=== PATIENT | male | born 1950 | race Caucasian/White ===

== ENCOUNTER 2016-12-07 07:14 | Emergency (ER) | payer OTHER ==
[2016-12-07 07:34] LABS: BILIRUBIN,URINE NEGATIVE (NEGATIVE)
[2016-12-07] MEDS ORDERED: KETOROLAC 60 MG/2 ML VIAL IVP STA (07:40)
[2016-12-07] MEDS ORDERED: SODIUM CHLORIDE 0.9% 1,000 ML IV ONE ×2 (07:40→10:25)
[2016-12-07] MEDS ORDERED: HYDROmorphone 1 MG/ML SYRINGE IVP STA ×2 (07:40→10:04)
[2016-12-07 07:42] LABS: UA w/ MICROSCOPIC CHARGE YES; UR CULTURE IF IND NOT INDICATED; WBC,URINE 0-3 /HPF (0-3)
[2016-12-07] MEDS ORDERED: KETOROLAC 30 MG/ML VIAL ONE (07:50)
[2016-12-07] MEDS ORDERED: ONDANSETRON 4 MG/2 ML VIAL ONE (07:50)
[2016-12-07] MEDS ORDERED: HYDROmorphone 1 MG/ML SYRINGE ONE ×2 (07:50→10:09)
[2016-12-07] MEDS ORDERED: ONDANSETRON 4 MG/2 ML VIAL IVP STA (07:56)
--- NOTE | 2016-12-07 08:22 | ED Physician Documentation ---
History of Present Illness - Stated complaint Stated Complaint: ABD PX - Chief complaint Chief Complaint: Abd Pain - Additonal information Additional information: Patient is a 66-year-old man with history of hypertension and a distant history of kidney stones who presents with a complaint of right-sided abdominal flank pain onset at 3M. I think really makes it better or worse he has had mild nausea without vomiting. There is no fever, chills, constipation, diarrhea or hematuria. He doesNot have any preceding symptoms and was doing well yesterday. He has been outside exercising quite a bit over the last week or 2. Review of systems: For pertinent positive and negative questions for the review of systems please see history of present illness. Otherwise all other systems have been reviewed and are negative. [employer] disclaimer: Parts of this medical record were created using voice recognition technology. Because of the inherent limitations of this system occasional same sounding word substitutions do occur and persist despite proofreading. Please read the document for context. PD PAST MEDICAL HISTORY - Past Medical History Cardiovascular: Hypertension Respiratory: CPAP use Neuro: Headache/migraine : Kidney stones Musculoskeletal: Osteopenia Other Past Medical History: L1/L2/T9 Compression fractures r/t Falls - Past Surgical History Ortho: ACL reconstruction - Present Medications Home Medications: Ambulatory Orders Medication Instructions Recorded Confirmed Losartan [Cozaar] 25 mg PO DAILY 12/07/16 12/07/16 - Allergies Allergies/Adverse Reactions: Allergies Allergy/AdvReac Type Severity Reaction Status Date / Time No Known Drug Allergies Allergy Verified 12/07/16 07:22 - Social History Does the pt smoke?: No Smoking Status: Never smoker ETOH Use: Wine Does the pt have substance abuse?: No - Immunizations Immunizations are current?: Yes PD ED PE NORMAL - Vitals Vital signs reviewed: Yes - General General: Alert and oriented X 3, No acute distress - HEENT HEENT: Atraumatic, PERRL - Neck Neck: Supple, no meningeal sign - Cardiac Cardiac: RRR, No murmur, No gallop - Respiratory Respiratory: No respiratory distress, Clear bilaterally - Abdomen Abdomen: Normal bowel sounds, Soft, Non tender, Non distended - Back Back: No CVA TTP - Derm Derm: Normal color, Warm and dry, No rash, Other - Extremities Extremities: No deformity - Neuro Neuro: Alert and oriented X 3, No motor deficit, No sensory deficit - Psych Psych: Normal mood, Normal affect Results - Vitals Vitals: Vital Signs - 24 hr 12/07/16 07:15 Temperature 36.4 C L Heart Rate 60 Respiratory 16 Rate Blood Pressure 133/87 H O2 Saturation 99 Oxygen O2 Source Room air - Labs Labs: Laboratory Tests 12/07/16 12/07/16 12/07/16 07:21 08:00 08:00 WBC 6.7 RBC 4.96 Hgb 14.8 Hct 43.9 MCV 88.4 MCH 29.9 MCHC 33.8 RDW 14.2 Plt Count 156 MPV 7.9 Neut # 5.1 Lymph # 1.1 L [place] # 0.3 Eos # 0.1 Baso # 0.1 Absolute Nucleated RBC 0.00 Nucleated RBCs 0.0 Sodium 138 Potassium 4.0 Chloride 105 Carbon Dioxide 27 Anion Gap 6.0 BUN 22 H Creatinine 0.8 Estimated GFR (MDRD) 97 Glucose 109 H Calcium 9.1 Total Bilirubin 0.8 AST 22 ALT 27 Alkaline Phosphatase 56 Total Protein 6.8 Albumin 4.1 Globulin 2.7 Albumin/Globulin Ratio 1.5 Lipase 31 Urine Color YELLOW Urine Clarity CLEAR Urine pH 6.0 Ur Specific [place] 1.020 Urine Protein NEGATIVE Urine Glucose (UA) NEGATIVE Urine Ketones NEGATIVE Urine Occult Blood SMALL H Urine Nitrite NEGATIVE Urine Bilirubin NEGATIVE Urine Urobilinogen 0.2 (NORMAL) Ur Leukocyte Esterase NEGATIVE Urine RBC 6-10 H Urine WBC 0-3 Ur Squamous Epith Cells RARE Squamous Urine Bacteria Rare Ur Microscopic Review INDICATED Urine Culture Comments NOT INDICATED PD MEDICAL DECISION MAKING - ED course ED course: This patient is a pleasant healthy male who presents with abdominal pain in the right side onset yesterday with nausea. On exam he does not have any tenderness there are no alleviating or exacerbating Factors. Based on this we suspected a kidney stone from the onset. Is given IV fluids Toradol Dilaudid and Zofran he currently feels better. Routine blood work is unremarkable on this patient. He was found to have Ureterolithiasis with a 4.7 mm stone at the largest diameter in mid position right side. Clinically this patient is doing well there is no signs or symptoms of infection he has a good chance of passing the stone although it is a little on the larger size. He was informed of these findings. We will place him on Flomax and administer pain, nausea medications, strainer and have him follow-up with his physician. Disposition: To home Clinical impression: 1. Ureterolithiasis right side 4.7 mm stone mid position
[2016-12-07 08:28] LABS: BASOPHILS # (AUTO) 0.1 10^3/uL (0.0-0.1); BASOPHILS % (AUTO) 0.9 %; EOSINOPHILS # (AUTO) 0.1 10^3/uL (0.0-0.7); EOSINOPHILS % (AUTO) 1.1 %; HCT - HEMATOCRIT 43.9 % (42.0-52.0); HGB - HEMOGLOBIN 14.8 g/dL (14.0-18.0); LYMPHOCYTES # (AUTO) 1.1 10^3/uL (1.5-3.5); LYMPHOCYTES % (AUTO) 16.3 %; MEAN CORPUSCULAR HEMOGLOBIN 29.9 pg (27.0-31.0); MEAN CORPUSCULAR HGB CONC 33.8 g/dL (32.0-36.0); MEAN CORPUSCULAR VOLUME 88.4 fL (80.0-94.0); MEAN PLATELET VOLUME 7.9 fL (7.4-11.4); MONOCYTES # (AUTO) 0.3 10^3/uL (0.0-1.0); MONOCYTES % (AUTO) 5.2 %; NEUTROPHILS # (AUTO) 5.1 10^3/uL (1.5-6.6); NEUTROPHILS % (AUTO) 76.5 %; RED BLOOD COUNT 4.96 10^6/uL (4.70-6.10); RED CELL DISTRIBUTION WIDTH 14.2 % (12.0-15.0); UNCORRECTED WHITE BLOOD COUNT 6.7 x10^3/uL; WHITE BLOOD COUNT 6.7 x10^3/uL (4.8-10.8)
[2016-12-07 08:41] LABS: ALBUMIN/GLOBULIN RATIO 1.5 (1.0-2.2); BILIRUBIN,TOTAL 0.8 mg/dL (0.2-1.0); CALCIUM 9.1 mg/dL (8.5-10.3); CREATININE 0.8 mg/dL (0.6-1.2); TOTAL PROTEIN 6.8 g/dL (6.7-8.2)
--- NOTE | 2016-12-07 09:03 | CT Preliminary Report ---
Exam: CT Abdomen/Pelvis W/O IMPRESSION: 1. Stone in the proximal right ureter measuring 4.7 x 3.3 mm resulting in mild right hydroureteroneph rosis. 2. Additional small bilateral nonobstructing renal calculi. [facility] SITE ID: [id number]
--- NOTE | 2016-12-07 09:06 | CT Report ---
EXAM: CT ABDOMEN AND PELVIS (CT KUB) EXAM DATE: 12/07/2016 08:42 AM. CLINICAL HISTORY: Right flank pain no tenderness. COMPARISONS: None. TECHNIQUE: Routine axial helical CT imaging was performed through the abdomen and pelvis without IV c ontrast. Reconstructions: Coronal and sagittal. In accordance with CT protocol optimization, one or more of the following dose reduction techniques w ere utilized for this exam: automated exposure control, adjustment of mA and/or KV based on patient s ize, or use of iterative reconstructive technique. FINDINGS: Lung Bases: Dependent atelectasis at the lung bases. No pleural or pericardial effusion. Right Kidney/Ureter: 2.7 cm right renal cyst. 2 mm and 2.5 mm nonobstructing right renal calculi. 4.7 x 3.3 mm obstructing stone at the right proximal ureter just below the ureteropelvic junction at the lower L3 level. Mild right hydronephrosis with perinephric fat stranding. Left Kidney/Ureter: Multiple 2-4 mm nonobstructing calculi. No hydronephrosis. No ureter stone. Other Solid Organs: Noncontrast images of the solid organs are grossly unremarkable. Gallbladder/Bile Ducts: Unremarkable. Peritoneal Cavity: No free fluid, free air or tarun adenopathy. Bowel is grossly unremarkable. Pelvic Organs: No bladder stones. Small fat-containing inguinal hernias. Vasculature: Unremarkable. Other: None. IMPRESSION: 1. Stone in the proximal right ureter measuring 4.7 x 3.3 mm resulting in mild right hydroureteroneph rosis. 2. Additional small bilateral nonobstructing renal calculi. [facility] Referring Provider Line: [phone] SITE ID: [id number]
[2016-12-07] MEDS ORDERED: TAMSULOSIN 0.4 MG CAPSULE PO STA (10:05)
[2016-12-07] MEDS ORDERED: TAMSULOSIN 0.4 MG CAPSULE ONE (10:10)
[2016-12-07 11:21] VITALS: BP 127/81
== END 2016-12-07 11:32 | disposition home or self-care (01) ==
LOC: ED 07:14
DX: N20.1 Calculus of ureter (principal); I10 Essential (primary) hypertension
CPT/HCPCS: 36415; 74176; 80053; 81001; 83690; 85025; 96374; 96375; 96376; 99284; A9270; J1170; 81003; 87086

== ENCOUNTER 2020-07-13 23:17 | Emergency (ER) | payer OTHER ==
[2020-07-13] MEDS ORDERED: ACETAMINOPHEN 325 MG TABLET PO STA (23:34)
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
[2020-07-14] MEDS ORDERED: MORPHINE 2 MG/ML CARPUJECT IVP STA (01:28)
[2020-07-14 01:54] LABS: BASOPHILS # (AUTO) 0.1 10^3/uL (0.0-0.1); BASOPHILS % (AUTO) 0.9 %; EOSINOPHILS # (AUTO) 0.1 10^3/uL (0.0-0.7); EOSINOPHILS % (AUTO) 1.4 %; HGB - HEMOGLOBIN 15.9 g/dL (14.0-18.0); LYMPHOCYTES # (AUTO) 1.9 10^3/uL (1.5-3.5); LYMPHOCYTES % (AUTO) 17.9 %; MEAN CORPUSCULAR HEMOGLOBIN 30.1 pg (27.0-31.0); MEAN CORPUSCULAR HGB CONC 32.7 g/dL (32.0-36.0); MEAN CORPUSCULAR VOLUME 91.9 fL (80.0-94.0); MEAN PLATELET VOLUME 9.9 fL (7.4-11.4); MONOCYTES # (AUTO) 0.6 10^3/uL (0.0-1.0); MONOCYTES % (AUTO) 5.9 %; NEUTROPHILS # (AUTO) 7.6 10^3/uL (1.5-6.6); NEUTROPHILS % (AUTO) 73.5 %; PLT - PLATELET COUNT 157 10^3/uL (130-450); RED BLOOD COUNT 5.29 10^6/uL (4.70-6.10); WHITE BLOOD COUNT 10.4 x10^3/uL (4.8-10.8)
[2020-07-14 02:02] LABS: CALCIUM 9.1 mg/dL (8.5-10.3)
[2020-07-14] MEDS ORDERED: IOVERSOL 320 100 ML VIAL IVP ONE ×2 (02:15→02:25)
[2020-07-14] MEDS ORDERED: oxyCODONE/ACET 5/325 Prepack 4 PO STA (03:18)
[2020-07-14 03:34] VITALS: BP 117/83
--- NOTE | 2020-07-14 07:23 | XRAY Report ---
PROCEDURE: Ribs w/PA Chest LT INDICATIONS: fall, posterior chest wall pain, tenderness TECHNIQUE: 2 views of the left ribs were acquired, along with a single view chest. COMPARISON: None FINDINGS: Surgical changes and devices: None. Bones and chest wall: No suspicious bony lesions. Overlying soft tissues appear unremarkable. Age- indeterminate lateral left eighth and ninth rib fractures. Lungs and pleura: No pleural effusions or pneumothorax. Minimal streaky bibasilar opacities. No foca l consolidations. Mediastinum: Mediastinal contours appear normal. Heart size is normal. IMPRESSION: 1. Age-indeterminate lateral left eighth and ninth rib fractures. These are favored to be subacute to chronic in age. Consider dedicated imaging with CT if there is persistent clinical concern. No pneum othorax. 2. Streaky bibasilar opacities. No significant discrepancy with initial interpretation by overnight radiologist. Reviewed by: Deonte Zuñiga MD on 07/14/2020 7:21 AM PST Approved by: Deonte Zuñiga MD on 07/14/2020 7:21 AM PST Station ID: [id number]
--- NOTE | 2020-07-14 07:33 | CT Report ---
PROCEDURE: Abdomen/Pelvis W INDICATIONS: fall, LUQ pain, tenderness radiating to back CONTRAST: IV CONTRAST: Optiray 320 ml: 100 PO CONTRAST: *NO PO CONTRAST TECHNIQUE: After the administration of weight appropriate dose of intravenous contrast, 5 mm thick sections acqu ired from the diaphragms to the symphysis. 5 mm thick coronal and sagittal reformats were acquired. For radiation dose reduction, the following was used: automated exposure control, adjustment of mA and/or kV according to patient size. COMPARISON: None. FINDINGS: Image quality: Excellent. ABDOMEN: Lung bases: Patchy bibasilar atelectasis greater on the left. Small left pleural effusion which appea rs slightly dense in attenuation and may represent a small amount of fecal pneumothorax. No visible p neumothorax. Tiny amount of soft tissue gas posterior to the left ninth rib. No definite fracture vis ualized. Heart size is normal. Mild atherosclerotic calcifications of the coronary arteries. Solid organs: Liver and spleen are normal in size and enhancement. Gallbladder is unremarkable L[place] iary system is non dilated. Pancreas enhances normally. No adrenal nodules. Kidneys demonstrate no rmal size and enhancement, without hydronephrosis. There are right-sided renal cysts. Multiple puncta te, nonobstructing nephroliths are noted in the bilateral kidneys. They measure up to 5 mm on the rig ht and 5 mm on the left. No ureteral stones seen. Bilateral ureters are normal in course and caliber. Peritoneum and bowel: Bowel loops demonstrate normal wall thickness and caliber. No free fluid or a ir. Nodes and vessels: No retroperitoneal or mesenteric adenopathy by size criteria. Aorta and inferior vena cava are normal in size. Atherosclerosis of the abdominal aorta and iliac vessels without aneur ysmal dilatation. Miscellaneous: No ventral hernias. PELVIS: Genitourinary: Bladder wall thickness is normal. Miscellaneous: No inguinal hernias or adenopathy. Bones: No suspicious bony lesions. No acute vertebral body compression fractures. Moderate multile sh[place]a lumbar spondylosis most severe at L5-S1 where there is grade 1 anterolisthesis of L5 on S1 second chandan to L5 pars defects. IMPRESSION: 1. Small left pleural effusion which appears hyperdense and possibly representing small left-sided he mothorax. Small amount of gas in the soft tissues posterior to the left ninth rib without definite ri b fracture visualized. 2. No acute traumatic abnormalities identified in the abdomen or pelvis. 3. Grade 1 anterolisthesis of L5 on S1 secondary to bilateral L5 pars defects. 4. Nonobstructing nephrolithiasis of the bilateral kidneys. 5. Atherosclerotic vascular disease. No significant discrepancy with initial interpretation by overnight radiologist. Reviewed by: Deonte Zuñiga MD on 07/14/2020 7:32 AM PST Approved by: Deonte Zuñiga MD on 07/14/2020 7:32 AM PST Station ID: [id number]
== END 2020-07-14 03:32 | disposition home or self-care (01) ==
LOC: ED 23:17
DX: S27.321A Contusion of lung, unilateral, initial encounter (principal); S20.212A Contusion of left front wall of thorax, initial encounter; W00.0XXA Fall on same level due to ice and snow, initial encounter; Y93.89 Activity, other specified; Y92.410 Unspecified street and highway as the place of occurrence of the external cause; Y99.0 Civilian activity done for income or pay; I10 Essential (primary) hypertension
CPT/HCPCS: 36415; 71101; 74177; 80048; 85025; 96374; 99284; A9270; Q9967

== ENCOUNTER 2020-12-31 15:48 | Outpatient (CLI) | payer OTHER | END 2020-12-31 15:49 | disposition home or self-care (01) | LOC: COV 15:48 | PROVIDERS: ATTEND Family Medicine | DX: Z20.822 Contact with and (suspected) exposure to COVID-19 (principal) ==

== ENCOUNTER 2021-05-06 15:14 | Outpatient (CLI) | payer OTHER ==
--- NOTE | 2021-05-06 16:12 | DEXA Report ---
PROCEDURE: Dexa Spine and/or Hip INDICATIONS: OSTEOPENIA TECHNIQUE: Dual energy x-ray absorptiometry (DXA) was performed on a APS System. Regions measur ed are the AP Spine, femoral neck, and if needed forearm. COMPARISON: None. FINDINGS: Lumbar Spine: Bone Mineral Density 1.085 g/cm/cm,T score -1.1. Left Hip: Bone Mineral Density 0.870 g/cm/cm,T score -1.6. Left Femoral Neck: Bone Mineral Density 0.784 g/cm/cm, T score -2.2. (T score greater or equal to -1.0: NORMAL) (T score from -1.1 to -2.4: OSTEOPENIA) (T score less than or equal to -2.5 to: OSTEOPOROSIS) Impression: Osteopenia. Patients with diagnosis of osteoporosis or osteopenia should have regular bone mineral density assess ment. For those eligible for Medicare, routine testing is allowed once every 2 years. Testing frequ ency can be increased for patients who have rapidly progressing disease or for those who are receivin g medical therapy to restore bone mass. Reviewed by: Boni Hernandez MD on 05/06/2021 4:11 PM PST Approved by: Boni Hernandez MD on 05/06/2021 4:11 PM PST Station ID: [id number]
== END 2021-05-06 15:15 | disposition home or self-care (01) ==
LOC: DI 15:14
PROVIDERS: ATTEND Internal Medicine
DX: M85.89 Other specified disorders of bone density and structure, multiple sites (principal)

== ENCOUNTER 2021-10-29 18:23 | Outpatient (CLI) | payer MEDICARE, OTHER | END 2021-10-29 18:24 | disposition home or self-care (01) | LOC: LAB.S 18:23 | PROVIDERS: ATTEND Internal Medicine | DX: M35.3 Polymyalgia rheumatica (principal) | CPT/HCPCS: 36415; 85651; 86141 ==

== ENCOUNTER 2022-10-13 11:18 | Outpatient (CLI) | payer MEDICARE, OTHER ==
[2022-10-13 11:40] LABS: INR 1.7 (0.8-1.2); PT - PROTHROMBIN TIME 18.5 secs (9.9-12.6)
== END 2022-10-13 11:19 | disposition home or self-care (01) ==
LOC: LAB 11:18
PROVIDERS: ATTEND Orthopaedic Surgery
DX: Z51.81 Encounter for therapeutic drug level monitoring (principal); Z96.642 Presence of left artificial hip joint; Z78.9 Other specified health status
CPT/HCPCS: 36415; 85610

== ENCOUNTER 2022-10-16 10:18 | Outpatient (CLI) | payer MEDICARE, OTHER ==
[2022-10-16 10:49] LABS: INR 1.4 (0.8-1.2); PT - PROTHROMBIN TIME 15.9 secs (9.9-12.6)
== END 2022-10-16 10:19 | disposition home or self-care (01) ==
LOC: LAB 10:18
PROVIDERS: ATTEND Orthopaedic Surgery
DX: Z51.81 Encounter for therapeutic drug level monitoring (principal); Z96.642 Presence of left artificial hip joint; Z78.9 Other specified health status
CPT/HCPCS: 36415; 36416; 85610

== ENCOUNTER 2022-10-19 09:41 | Outpatient (CLI) | payer MEDICARE, OTHER ==
[2022-10-19 10:11] LABS: INR 1.4 (0.8-1.2); PT - PROTHROMBIN TIME 15.6 secs (9.9-12.6)
== END 2022-10-19 09:42 | disposition home or self-care (01) ==
LOC: LAB 09:41
PROVIDERS: ATTEND Orthopaedic Surgery
DX: Z96.642 Presence of left artificial hip joint (principal); Z78.9 Other specified health status; Z51.81 Encounter for therapeutic drug level monitoring
CPT/HCPCS: 36415; 36416; 85610

== ENCOUNTER 2022-10-26 08:56 | Outpatient (CLI) | payer MEDICARE, OTHER ==
[2022-10-26 09:20] LABS: INR 1.9 (0.8-1.2); PT - PROTHROMBIN TIME 20.2 secs (9.9-12.6)
== END 2022-10-26 08:57 | disposition home or self-care (01) ==
LOC: LAB 08:56
PROVIDERS: ATTEND Internal Medicine
DX: Z51.81 Encounter for therapeutic drug level monitoring (principal); Z96.642 Presence of left artificial hip joint; Z78.9 Other specified health status
CPT/HCPCS: 36415; 85610

== ENCOUNTER 2022-10-29 12:52 | Outpatient (CLI) | payer MEDICARE, OTHER ==
[2022-10-29 13:18] LABS: INR 1.7 (0.8-1.2); PT - PROTHROMBIN TIME 18.8 secs (9.9-12.6)
== END 2022-10-29 12:53 | disposition home or self-care (01) ==
LOC: LAB 12:52
PROVIDERS: ATTEND Orthopaedic Surgery
DX: Z51.81 Encounter for therapeutic drug level monitoring (principal); Z96.642 Presence of left artificial hip joint; Z78.9 Other specified health status
CPT/HCPCS: 36415; 85610

== ENCOUNTER 2022-11-02 09:09 | Outpatient (CLI) | payer MEDICARE, OTHER ==
[2022-11-02 09:32] LABS: INR 2.2 (0.8-1.2); PT - PROTHROMBIN TIME 23.7 secs (9.9-12.6)
== END 2022-11-02 09:10 | disposition home or self-care (01) ==
LOC: LAB 09:09
PROVIDERS: ATTEND Orthopaedic Surgery
DX: Z51.81 Encounter for therapeutic drug level monitoring (principal); Z96.642 Presence of left artificial hip joint; Z78.9 Other specified health status
CPT/HCPCS: 36415; 36416; 85610

== ENCOUNTER 2022-11-05 09:06 | Outpatient (CLI) | payer MEDICARE, OTHER ==
[2022-11-05 09:31] LABS: INR 2.2 (0.8-1.2); PT - PROTHROMBIN TIME 23.8 secs (9.9-12.6)
== END 2022-11-05 09:07 | disposition home or self-care (01) ==
LOC: LAB 09:06
PROVIDERS: ATTEND Orthopaedic Surgery
DX: Z51.81 Encounter for therapeutic drug level monitoring (principal); Z96.642 Presence of left artificial hip joint; Z78.9 Other specified health status
CPT/HCPCS: 36415; 85610

== ENCOUNTER 2023-04-21 18:07 | Emergency (ER) | payer MEDICARE, OTHER ==
[2023-04-21 18:38] LABS: BILIRUBIN,URINE NEGATIVE (NEGATIVE); GLUCOSE, URINE (UA) NEGATIVE (NEGATIVE); KETONES,URINE (UA) NEGATIVE (NEGATIVE); LEUKOCYTE ESTERASE, URINE NEGATIVE (NEGATIVE); NITRITE,URINE NEGATIVE (NEGATIVE); OCCULT BLOOD,URINE TRACE-INTA (NEGATIVE); PROTEIN,URINE NEGATIVE (NEGATIVE); UROBILINOGEN,URINE 0.2 (NORMAL) E.U./dL (NORMAL)
[2023-04-21 18:42] LABS: CLARITY,URINE CLEAR (CLEAR)
[2023-04-21 18:45] LABS: BACTERIA,URINE None Seen /HPF (None Seen); RBC,URINE 0-5 /HPF (0-5); SQUAMOUS EPITHELIAL CELL,UR NONE SEEN (<= Few); WBC,URINE 0-3 /HPF (0-3)
[2023-04-21 18:46] LABS: AMORPHOUS SEDIMENT,UR Few /LPF
[2023-04-21] MEDS ORDERED: HYDROmorphone 1 MG/ML CARPUJECT IVP STA (18:46)
[2023-04-21] MEDS ORDERED: ONDANSETRON 4 MG/2 ML VIAL IVP STA (18:46)
[2023-04-21] MEDS ORDERED: KETOROLAC 15 MG/ML VIAL IVP STA (18:46)
[2023-04-21] MEDS ORDERED: SODIUM CHLORIDE 0.9% 1,000 ML IV STA (18:46)
--- NOTE | 2023-04-21 18:47 | ED Physician Documentation ---
PD HPI ABD PAIN - Stated complaint Stated Complaint: BACK PX - Chief complaint Chief Complaint: Abd Pain - History obtained from History obtained from: Patient, Family - Additional information Additional information: He has a history of multiple kidney stones in the past and about 3-1/2 hours ago developed right flank pain radiating to the right pelvis. It is reminiscent of prior kidney stones. No urinary complaints other than a sensation of frequency with minimal output. He was previously anticoagulated as he was in a study but is no longer anticoagulated save aspirin. PD PAST MEDICAL HISTORY - Past Medical History Past Medical History: Yes Cardiovascular: Hypertension Respiratory: CPAP use Neuro: None Endocrine/Autoimmune: None GI: None : Kidney stones HEENT: None Psych: None Musculoskeletal: Osteopenia Derm: None - Past Surgical History Past Surgical History: Yes General: Colonoscopy Ortho: Hip replacement, ACL reconstruction - Present Medications Home Medications: Ambulatory Orders Medication Instructions Recorded Confirmed Atorvastatin [Lipitor] 20 mg PO DAILY 04/21/23 04/21/23 Meloxicam 7.5 mg PO BID 04/21/23 04/21/23 Ondansetron Odt [Zofran] 4 mg TL Q6H PRN #10 tablet 04/21/23 Oxycodone HCl/Acetaminophen 1 - 2 each PO Q6H PRN #14 tablet 04/21/23 [Percocet 5-325 mg Tablet] Tamsulosin [Flomax] 0.4 mg PO DAILY #14 cap 04/21/23 - Allergies Allergies/Adverse Reactions: Allergies Allergy/AdvReac Type Severity Reaction Status Date / Time No Known Drug Allergies Allergy Verified 07/13/20 23:21 - Social History Does the pt smoke?: No Smoking Status: Never smoker Does the pt drink ETOH?: Yes Does the pt have substance abuse?: No - Immunizations Immunizations are current?: Yes - POLST Patient has POLST: No PD ED PE NORMAL - Vitals Vital signs reviewed: Yes - General General: Alert and oriented X 3, No acute distress - Abdomen Abdomen: Normal bowel sounds, Soft, Other (Mild right-sided abdominal tenderness and right flank tenderness.) - Derm Derm: No rash - Neuro Neuro: Alert and oriented X 3 Results - Vitals Vitals: Vital Signs - 24 hr 04/21/23 18:16 Temperature 36.3 C L Heart Rate 70 Respiratory 20 Rate Blood Pressure 168/97 H O2 Saturation 95 Oxygen O2 Source Room air - Labs Labs: Laboratory Tests 04/21/23 04/21/23 04/21/23 18:28 18:59 18:59 WBC 8.5 RBC 5.42 Hgb 15.3 Hct 47.9 MCV 88.4 MCH 28.2 MCHC 31.9 L RDW 14.7 Plt Count 175 MPV 10.0 Neut # (Auto) 6.1 Lymph # (Auto) 1.5 [place] # (Auto) 0.6 Eos # (Auto) 0.2 Baso # (Auto) 0.1 Absolute Nucleated RBC 0.00 Nucleated RBC % 0.0 Sodium 138 Potassium 4.3 Chloride 104 Carbon Dioxide 26 Anion Gap 8.0 BUN 22 H Creatinine 1.2 Estimated GFR (MDRD) 60 L Glucose 99 Calcium 9.5 Total Bilirubin 0.6 AST 20 ALT 15 Alkaline Phosphatase 59 Total Protein 6.3 L Albumin 4.3 Globulin 2.0 L Albumin/Globulin Ratio 2.2 Urine Color YELLOW Urine Clarity CLEAR Urine pH 7.0 Ur Specific [place] 1.015 Urine Protein NEGATIVE Urine Glucose (UA) NEGATIVE Urine Ketones NEGATIVE Urine Occult Blood TRACE-INTA Urine Nitrite NEGATIVE Urine Bilirubin NEGATIVE Urine Urobilinogen 0.2 (NORMAL) Ur Leukocyte Esterase NEGATIVE Urine RBC 0-5 Urine WBC 0-3 Ur Squamous Epith Cells NONE SEEN Amorphous Sediment Few Urine Bacteria None Seen Urine Culture Comments NOT INDICATED - Rads (name of study) CT KUB Relevant Findings:: Final report received, EMP independent interpretation of test PD Medical Decision Making - ED course ED course: 72-year-old gentleman with history of renal colic presents with pain consistent with prior renal colic and is found to have a 4 to 5 mm proximal right ureteral stone with mild signs of obstruction. He was all but pain-free after single dose of IV Dilaudid, Toradol, and Zofran. Urinalysis without signs of infection. CBC and CMP unremarkable. Of note, tomorrow is thanksgiving and all of the local pharmacies are closed. I spoke with our pharmacist, MAXI Chapa who tells me it is okay to give prepacks as long as the dosing would be less than 24 hours worth of medications. Departure - Departure Disposition: 01 Home, Self Care Clinical Impression: Ureterolithiasis Condition: Good Record reviewed to determine appropriate education?: Yes Instructions: ED Stone Renal W Colic Follow-Up: Dale Donohue MD [Provider Admit Priv/Credential] - Prescriptions: Tamsulosin [Flomax] 0.4 mg PO DAILY #14 cap Oxycodone HCl/Acetaminophen [Percocet 5-325 mg Tablet] 1 - 2 each PO Q6H PRN #14 tablet PRN Reason: pain Ondansetron Odt [Zofran] 4 mg TL Q6H PRN #10 tablet PRN Reason: Nausea / Vomiting Comments: As discussed, you have many stones in both kidneys, and the stone bothering him today is a 4 to 5 mm stone in the proximal right ureter. You should follow-up with the urologist, calling Wednesday for the next available appointment. Return for new or worsening symptoms. I sent the prescription electronically to [facility] in [place], but you will need to wait until Wednesday to pick it up as they are closed due to the holiday. I am prescribing a short course of narcotic pain medication for you. These are potentially dangerous and addictive medications that should be used carefully. These medications may constipate you. Take an deit-fqo-ywqzoxm stool softener (docusate) twice daily with plenty of water while taking these medications. If you go 24 hours without a bowel movement, take [id number] miralax, per package instructions. Do not drink or drive while taking these medications. If you received narcotic or sedating medications while in the emergency department, do not drive for 24 hours. Store this medication in a safe, secure place and out of reach of children. It is a violation of federal law to give or sell this medication to another person or to use in a manner other than prescribed. The ED will not refill narcotic prescriptions, including prescriptions lost or stolen. To dispose of unwanted medications: 1. [facility] provides a [facility] box for medication in pill form only (no liquids) 8:00 am to 4:30 p.m. Wednesday-Wednesday in the lobby of the [facility], [address] [place] [address]. Empty pills into ziplock bag before disposal. Call [phone] for information. 2.[employer] is a free service available to all [facility] residents. Go to [email or web address] Note that many narcotic pain relievers also contain Tylenol/acetaminophen. Please ensure that your total dose of acetaminophen from all sources does not exceed 3 g (3000 mg) per day. Forms: PCP List
[2023-04-21 19:06] LABS: BASOPHILS # (AUTO) 0.1 10^3/uL (0.0-0.1); BASOPHILS % (AUTO) 1.1 %; EOSINOPHILS # (AUTO) 0.2 10^3/uL (0.0-0.7); EOSINOPHILS % (AUTO) 2.7 %; HCT - HEMATOCRIT 47.9 % (42.0-52.0); HGB - HEMOGLOBIN 15.3 g/dL (14.0-18.0); LYMPHOCYTES # (AUTO) 1.5 10^3/uL (1.5-3.5); LYMPHOCYTES % (AUTO) 17.6 %; MEAN CORPUSCULAR HEMOGLOBIN 28.2 pg (27.0-31.0); MEAN CORPUSCULAR HGB CONC 31.9 g/dL (32.0-36.0); MEAN CORPUSCULAR VOLUME 88.4 fL (80.0-94.0); MONOCYTES # (AUTO) 0.6 10^3/uL (0.0-1.0); MONOCYTES % (AUTO) 6.5 %; NEUTROPHILS # (AUTO) 6.1 10^3/uL (1.5-6.6); NEUTROPHILS % (AUTO) 71.9 %; PLT - PLATELET COUNT 175 10^3/uL (130-450); RED BLOOD COUNT 5.42 10^6/uL (4.70-6.10); RED CELL DISTRIBUTION WIDTH 14.7 % (12.0-15.0); WHITE BLOOD COUNT 8.5 x10^3/uL (4.8-10.8)
[2023-04-21 19:23] LABS: ALBUMIN 4.3 g/dL (3.2-5.5); ALBUMIN/GLOBULIN RATIO 2.2 (1.0-2.2); BILIRUBIN,TOTAL 0.6 mg/dL (0.2-1.0); CALCIUM 9.5 mg/dL (8.5-10.3); CREATININE 1.2 mg/dL (0.6-1.3); POTASSIUM 4.3 mmol/L (3.5-4.5); TOTAL PROTEIN 6.3 g/dL (6.4-8.9)
[2023-04-21] MEDS ORDERED: TAMSULOSIN 0.4 MG CAPSULE PO STA (19:56)
--- NOTE | 2023-04-21 20:19 | CT Report ---
PROCEDURE: ABDOMEN/PELVIS WO INDICATIONS: r flank pain TECHNIQUE: A CT scan of the abdomen and pelvis was performed without the use of intravenous contrast. Images we re recorded and evaluated at appropriate window settings. Reformats: coronal and sagittal. For radiat ion dose reduction, the following was used: automated exposure control, adjustment of mA and/or kV ac cording to patient size. COMPARISON: CT abdomen pelvis 07/14/2020 FINDINGS: Image quality: There is limited visualization of the pelvis secondary to artifact from hip arthroplas ty. Lung bases and heart: Unremarkable. Liver: No solid mass. Gallbladder and biliary tree: Unremarkable. Spleen: No splenomegaly. Pancreas: No pancreatic ductal dilation. Adrenals: No adrenal nodule. Kidneys and ureters: There are 6 calcifications in the right kidney the largest measuring 4 mm. Mild to moderate hydronephrosis. Mild hydroureter with 4-5 mm calcification in the proximal ureter Hounsfi eld units measuring 959. There are 10 nonobstructing left renal calcifications the largest measuring 5 mm, Hounsfield units 935. Bowel and peritoneum: No bowel distension. No pathologic free fluid. Lymph nodes: No central or retroperitoneal adenopathy. Vessels: No infrarenal aortic aneurysm. PELVIS Reproductive organs: Unremarkable. Bladder: No wall thickness, accounting for underdistention. Pelvic lymph nodes: No pelvic adenopathy by size criteria. Bones: No aggressive osseous abnormality. 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 Other: Bilateral fat-containing inguinal hernia. IMPRESSION: No hydronephrosis or obstructing renal stone. Mild right hydronephrosis and proximal hydroureter secondary to proximal ureteral calculus. Nonobstructing bilateral renal calcifications. Reviewed by: Naima Cortez MD on 04/21/2023 8:18 PM PST Approved by: Naima Cortez MD on 04/21/2023 8:18 PM PST Station ID: [id number]
[2023-04-21] MEDS ORDERED: oxyCODONE/ACET 5/325 Prepack 4 PO STA (20:41)
[2023-04-21] MEDS ORDERED: ONDANSETRON ODT 4 MG Prepack 2 TL PRN ×2 (20:41→20:42)
[2023-04-21 21:11] VITALS: BP 130/74; O2SAT 100
== END 2023-04-21 21:03 | disposition home or self-care (01) ==
LOC: ED 18:07
DX: N13.2 Hydronephrosis with renal and ureteral calculous obstruction (principal); Z87.442 Personal history of urinary calculi
CPT/HCPCS: 36415; 74176; 80053; 81001; 85025; 96374; 99283; 99284; A9270; J1170; 87086

== ENCOUNTER 2023-09-07 14:36 | Outpatient (CLI) | payer MEDICARE, OTHER ==
[2023-09-07 15:12] LABS: BILIRUBIN,URINE NEGATIVE (NEGATIVE); GLUCOSE, URINE (UA) NEGATIVE (NEGATIVE); KETONES,URINE (UA) NEGATIVE (NEGATIVE); LEUKOCYTE ESTERASE, URINE NEGATIVE (NEGATIVE); NITRITE,URINE NEGATIVE (NEGATIVE); OCCULT BLOOD,URINE NEGATIVE (NEGATIVE); PROTEIN,URINE NEGATIVE (NEGATIVE); UROBILINOGEN,URINE 0.2 (NORMAL) E.U./dL (NORMAL)
[2023-09-07 15:16] LABS: CLARITY,URINE CLEAR (CLEAR)
[2023-09-07 15:29] LABS: BACTERIA,URINE None Seen /HPF (None Seen); RBC,URINE None Seen /HPF (0-5); SQUAMOUS EPITHELIAL CELL,UR NONE SEEN (<= Few); WBC,URINE 0-3 /HPF (0-3)
== END 2023-09-07 14:37 | disposition home or self-care (01) ==
LOC: LAB 14:36
PROVIDERS: ATTEND Physician Assistant Surgical
DX: N20.0 Calculus of kidney (principal)
CPT/HCPCS: 81001; 87086

== ENCOUNTER 2023-10-04 10:14 | Outpatient (CLI) | payer MEDICARE, OTHER ==
[2023-10-04 10:32] LABS: BILIRUBIN,URINE NEGATIVE (NEGATIVE); CLARITY,URINE CLEAR (CLEAR); GLUCOSE, URINE (UA) NEGATIVE (NEGATIVE); KETONES,URINE (UA) NEGATIVE (NEGATIVE); LEUKOCYTE ESTERASE, URINE NEGATIVE (NEGATIVE); NITRITE,URINE NEGATIVE (NEGATIVE); OCCULT BLOOD,URINE MODERATE (NEGATIVE); PH,URINE 6.5 PH (5.0-7.5); PROTEIN,URINE NEGATIVE (NEGATIVE); UROBILINOGEN,URINE 0.2 (NORMAL) E.U./dL (NORMAL)
[2023-10-04 11:08] LABS: BACTERIA,URINE Rare /HPF (None Seen); SQUAMOUS EPITHELIAL CELL,UR NONE SEEN (<= Few); WBC,URINE 0-3 /HPF (0-3)
== END 2023-10-04 10:15 | disposition home or self-care (01) ==
LOC: LAB 10:14
PROVIDERS: ATTEND Physician Assistant Surgical
DX: N20.0 Calculus of kidney (principal)
CPT/HCPCS: 81001; 81003; 87086